=== PATIENT | male | born 1965 | race Caucasian/White ===

== ENCOUNTER 2024-12-12 09:59 | Outpatient (CLI) | payer OTHER, SELFPAY ==
--- NOTE | 2024-12-12 10:12 | XR_ITS ---
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 The heart is normal in size. The mediastinum is within normal limits. The lungs are clear. There is no pneumothorax. Osseous structures are unremarkable. IMPRESSION: No acute cardiopulmonary process. Reviewed, Interpreted and Dictated by Ana M Sotelo MD Transcribed by Evelyn Padilla Authenticated and [facility]
--- OUTSIDE RECORDS SUMMARY | 2024-12-12 10:28 | XMS_ITS | Clinical Summary ---
[facility] Address [address] [place] [address] Care Team Providers Care Mason Apprentice Name Role Phone Yan Tsai MD Primary Care Provider Allergies No known active allergies Medications zolpidem (AMBIEN) 10 MG tabletIndication s:Other insomnia Take 1 tablet by mouth At Night As Needed for Sleep. 30 tablet 2 05/05/2017 Active Active Problems Problem Noted Date Diagnosed Date Other insomnia 05/05/2017 Social History Tobacco Use Types Packs/Day Years Used Date Smoking Tobacco: Never Smokeless Tobacco: Never Alcohol Use Standard Drinks/Week Comments Yes 0 (1 standard drink = 0.6 oz pur e alcohol) Abuse Screen Answer Date Recorded Unsafe at Home or Work/School Not on file Feels Threatened by Someone? Not on file 10/2022 Does Anyone Keep You from Co ntacting Others or Doint Things Outside the Home? Not on file 12/01/2022 Physical Sign of Abuse Present Not on file 1 Housing Stability Answer Date Recorded Current Living Arrangements Not on file 10/2022 Potentially Unsafe Housing Conditions Not on buddy e 12/01/2022 Family and Community Support Answer Jarred e Recorded Help with Day-to-Day Activities Not on file 12/01/2022 Lonely or Isolated Not on file 12/01/2022 Employment Answer Date Recorded Do you want help finding or keeping work or a marvin b? Not on file 12/01/2022 Disabilities Answer Date Recorded Concentrating, Remembering, or Making Decisions Difficulty Not on file 12/01/2022 Doing Errands Independently Difficulty Not on fi le 12/01/2022 Education Answer Date Recorded Help with school or training? Not on file Preferred Language Not on file 12/01/2022 Sex and Gender Information Value Date Recorded Sex Assigned at Not on file Legal Sex Male 10:20 AM EDT Gender Identity Not on file Sexual Orientation Not on file Last Filed Vital Signs Vital Sign Reading Time Taken Comments Blood Pressure 126/70 05/05/2017 4:09 PM EDT Pulse 72 05/05/2017 3:56 PM EDT Temperature - - Respiratory Rate - - Oxygen Saturation - - Inhaled Oxygen Concentration - - Weight 79.4 kg (175 lb) 05/05/2017 3:56 PM EDT Height 182.9 cm (6') 05/05/2017 3:56 PM EDT Body Mass Index 23.73 05/05/2017 3:56 PM EDT Plan of Treatment Health Maintenance Due Date Last Done Comments TDAP/TD VACCINES (1 - Tdap) 07/25/1986 COLOGUARD 07/25/2012 COLON CANCER SCREENING 5 YEAR SIGMOIDOSCOPY 07/25/2012 COLONOSCOPY 07/25/2012 COLORECTAL CANCER SCREENING 07/25/2012 CT COLONOGRAPHY 07/25/2012 FECAL OCCULT BLOOD TEST 07/25/2012 FIT Testing (1 year) 07/25/2012 ANNUAL PHYSICAL 05/05/2017 HEPATITIS C SCREENING 05/05/2017 Pneumococcal Vaccine 50+ (1 of 1 - PCV) 07/25/2017 ZOSTER VACCINE (1 of 2) 07/25/2017 INFLUENZA VACCINE 09/23/2024 Insurance Care Teams Mason Apprentice Relationship Specialty Start Date End Date Yan Tsai MD [address] [place], [place] [id number] PCP - General Family Medicine 08/10/19
== END 2024-12-12 23:59 | disposition home or self-care (01) ==
LOC: RAD 10:05
PROVIDERS: PCP Family Medicine; Visit Provider Family Medicine
DX: R07.89 Other chest pain (principal)
CPT/HCPCS: 71046